=== PATIENT | female | born 1990 | race Caucasian/White ===

== ENCOUNTER 2018-03-11 19:51 | Emergency (ER) | payer OTHER ==
[~2018-03-11] VITALS: Ht 154.9 cm; Wt 58.2 kg
[2018-03-11 20:42] LABS: BASOPHIL (%) 0.2 % (0-1); EOSINOPHIL (%) 0.9 % (0-5); EOSINOPHIL COUNT 0.1 K/uL (0-0.3); HEMATOCRIT 41.1 % (36.0-46.0); HEMOGLOBIN 14.1 G/DL (11.9-15.5); IMMATURE GRANULOCYTE (%) 0.4 % (0.0-0.7); LYMPHOCYTE (%) 24.9 % (15-42); LYMPHOCYTE COUNT 2.8 K/uL (1.0-2.8); MCHC 34.3 G/DL (30.0-36.0); MCV 90.3 FL (83-99); MONOCYTE (%) 7.3 % (3-12); MONOCYTE COUNT 0.8 K/uL (0-0.8); NEUTROPHIL (%) 66.3 % (45-76); NEUTROPHIL COUNT 7.3 K/uL (1.8-6.4); PLATELET COUNT 282 K/uL (156-360); RBC DIS.WIDTH-CV 12.1 % (11.8-14.6); RBC DIS.WIDTH-SD 40.1 % (39-53); RED BLOOD COUNT 4.55 M/uL (3.80-5.20)
[2018-03-11 20:51] LABS: ALBUMIN 4.4 g/dL (3.2-4.8); CHLORIDE 106 mEq/L (99-109); SODIUM 138 mEq/L (136-147)
[2018-03-11 20:52] LABS: AMYLASE 65 IU/L (1-118)
[2018-03-11 20:53] LABS: GLUCOSE 92 mg/dL (70-99)
[2018-03-11 20:54] LABS: TOTAL PROTEIN 7.7 g/dL (6.4-8.3)
[2018-03-11 20:55] LABS: TOTAL BILIRUBIN 0.5 mg/dL (0.0-1.0)
[2018-03-11 20:56] LABS: SERUM ETHYL ALCOHOL < 10 mg/dL
[2018-03-11 20:57] LABS: ALKALINE PHOSPHATASE 62 IU/L (3-129); CREATININE 0.8 mg/dL (0.6-1.3)
[2018-03-11 20:58] LABS: GFR ESTIMATE (CALCULATED) > 59 mL/min/; UREA NITROGEN (BUN) 16 mg/dL (9-23)
[2018-03-11 20:59] LABS: AST (GOT) 16 IU/L (2-34)
[2018-03-11 21:00] LABS: ALT (GPT) 16 IU/L (3-49)
[2018-03-11 21:01] LABS: LIPASE 34 U/L (1.0-51.0)
[2018-03-11 22:39] VITALS: BP 132/81
== END 2018-03-11 23:47 | disposition home or self-care (01) ==
LOC: TRA 19:51 → EME 19:51 → TRA 23:47
PROVIDERS: Emergency Medicine
DX: S70.02XA Contusion of left hip, initial encounter (principal); S30.1XXA Contusion of abdominal wall, initial encounter; V48.5XXA Car driver injured in noncollision transport accident in traffic accident, initial encounter; Y92.410 Unspecified street and highway as the place of occurrence of the external cause; M41.9 Scoliosis, unspecified; Z88.0 Allergy status to penicillin
CPT/HCPCS: 71260; 74177; 80053; 81003; 82150; 83690; 85025; 86850; 86900; 86901; 99281; 99285; G0480